=== PATIENT | male | born 1975 | race Caucasian/White ===

== ENCOUNTER 2023-08-15 22:15 | Emergency (ER) | payer OTHER ==
[2023-08-15 22:24] VITALS: BP 130/71; PULSE 100; RESP 20; TEMP 99.8; BMI 25.3
[2023-08-16] MEDS ORDERED: ACETAMINOPHEN 1000 MG/100 ML BAG IVPB ONE (01:09)
[2023-08-16] MEDS ORDERED: LACTATED RINGERS SOLUTION 1000 ML INFUS.BAG IV ONE (01:15)
[2023-08-16] MEDS ORDERED: ACETAMINOPHEN INJECTION 100 ML IVPB ONE (01:34)
== END 2023-08-16 02:13 | disposition home or self-care (01) ==
LOC: JERFT 22:15 → JER 22:15
DX: R50.9 Fever, unspecified (principal); R05.9 Cough, unspecified; M79.10 Myalgia, unspecified site; R51.9 Headache, unspecified; R09.81 Nasal congestion; R63.0 Anorexia; R00.0 Tachycardia, unspecified; J10.1 Influenza due to other identified influenza virus with other respiratory manifestations; Z20.822 Contact with and (suspected) exposure to COVID-19
CPT/HCPCS: 0241U-QW; 99283-25

== ENCOUNTER 2023-10-09 23:58 | Emergency (ER) | payer OTHER ==
[2023-10-10 00:07] VITALS: BP 148/88; PULSE 74; RESP 20; TEMP 98.7; BMI 25.4
[2023-10-10] MEDS ORDERED: ACETAMINOPHEN 325 MG TABLET (FP) ONE (01:05)
[2023-10-10] MEDS ORDERED: IBUPROFEN 600 MG TABLET (FP) PO ONE (01:05)
[2023-10-10] MEDS ORDERED: LIDOCAINE 5% TOPICAL PATCH ONE (01:05)
[2023-10-10] MEDS: LIDOCAINE 5% TOPICAL PATCH TP ONE (01:09)
[2023-10-10] MEDS: ACETAMINOPHEN 500 MG TABLET (FP) PO ONE (01:10)
[2023-10-10] MEDS: IBUPROFEN 600 MG TABLET (FP) PO ONE (01:10)
[2023-10-10] MEDS ORDERED: LIDOCAINE PATCH REMOVAL MC SCH (22:00)
== END 2023-10-10 03:23 | disposition home or self-care (01) ==
LOC: JER 23:58
DX: M54.6 Pain in thoracic spine (principal); M62.838 Other muscle spasm; M54.2 Cervicalgia
CPT/HCPCS: 72125-TC; 99284-25

== ENCOUNTER 2024-01-08 18:12 | Inpatient (IN) | payer OTHER ==
[2024-01-08] MEDS ORDERED: KETOROLAC TROMETHAMINE 15 MG/ML VIAL ONE (18:37)
[2024-01-08] MEDS ORDERED: HYDROmorphone HCL CARPU-JECT 2 MG/1 ML DISP.SYRIN ONE ×2 (18:51→23:16)
[2024-01-08 19:02] LABS: HEMATOCRIT 44.4 % (35.4-49); MCH 28.2 pg (25.7-33.7); MCHC 33.9 g/dl (32.0-35.9); MEAN CELL VOLUME 83.2 fl (80-96); PLATELET COUNT 190 10^3/uL (134-434); RBC 5.33 M/mm3 (4.00-5.60); RDW 14.1 % (11.9-15.9)
[2024-01-08] MEDS: HYDROmorphone HCl 2 MG/ML VIAL IVPUSH ONE ×2 (19:07→23:31)
[2024-01-08] MEDS: KETOROLAC TROMETHAMINE 15 MG/ML VIAL IM ONE (19:07)
[2024-01-08] MEDS: SODIUM CHLORIDE 0.9% 500 ML INFUS.BAG IV ONE ×2 (19:07→22:44)
[2024-01-08] MEDS: ACETAMINOPHEN 1000 MG/100 ML BAG IVPB ONE ×2 (19:08→22:19)
[2024-01-08 19:35] LABS: POTASSIUM 4.5 mmol/L (3.5-5.1)
[2024-01-08 19:37] LABS: CALCIUM 9.6 mg/dL (8.5-10.1)
[2024-01-08 19:38] LABS: ALBUMIN 4.2 g/dl (3.4-5.0)
[2024-01-08 19:41] LABS: CREATININE 1.5 mg/dL (0.55-1.3)
[2024-01-08 19:43] LABS: BILIRUBIN,TOTAL 0.3 mg/dL (0.2-1); TOT PROT 7.4 g/dl (6.4-8.2)
[2024-01-08 22:02] LABS: EPI CELLS 26 /uL (0-25.1); HYALINE CASTS 5 /uL (0-3.1); URINE APPEARANCE CLEAR; URINE BACTERIA 3 /uL (0-1359); URINE BILIRUBIN NEGATIVE (NEGATIVE); URINE COLOR YELLOW; URINE GLUCOSE (UA) TRACE (NEGATIVE); URINE KETONE TRACE (NEGATIVE); URINE LEUK ESTERASE NEGATIVE (NEGATIVE); URINE NITRITE NEGATIVE (NEGATIVE); URINE PROTEIN 1+ (NEGATIVE); URINE RBC 2955 /uL (0-23.9); URINE UROBILINOGEN 0.2 mg/dL (0.2-1.0); URINE WBC 5 /uL (0-25.8)
[2024-01-08] MEDS ORDERED: ACETAMINOPHEN INJECTION 100 ML IVPB ONE (22:14)
[2024-01-08] MEDS ORDERED: CEFTRIAXONE 1 GM/50 ML BAG ONE (22:20)
[2024-01-09] MEDS: TAMSULOSIN HCL 0.4 MG CAP PO ONE (00:11)
[2024-01-09] MEDS: SODIUM CHLORIDE 1,000 ML IV SCH (01:16)
[2024-01-09] MEDS ORDERED: ACETAMINOPHEN INJECTION 100 ML IVPB ONE ×2 (06:24→16:49)
[2024-01-09] MEDS: ACETAMINOPHEN 1000 MG/100 ML BAG IVPB PRN (06:29)
[2024-01-09 08:20] LABS: BASO % 0.2 % (0-2.0); EOS % 0.2 % (0-4.5); LYMPH % 16.1 % (8-40); MCH 28.2 pg (25.7-33.7); MCHC 34.2 g/dl (32.0-35.9); MEAN CELL VOLUME 82.5 fl (80-96); MEAN PLT VOLUME 9.1 fl (7.5-11.1); MONO % 7.9 % (3.8-10.2); NEUT % 75.6 % (42.8-82.8); PLATELET COUNT 155 10^3/uL (134-434); RBC 4.61 M/mm3 (4.00-5.60); RDW 13.8 % (11.9-15.9)
[2024-01-09 08:43] LABS: POTASSIUM 3.8 mmol/L (3.5-5.1)
[2024-01-09 08:47] LABS: ALBUMIN 3.6 g/dl (3.4-5.0); MAGNESIUM 1.9 mg/dL (1.8-2.4)
[2024-01-09 08:50] LABS: CREATININE 1.1 mg/dL (0.55-1.3); PHOSPHOROUS 2.6 mg/dL (2.5-4.9)
[2024-01-09 08:51] LABS: BILIRUBIN,TOTAL 0.8 mg/dL (0.2-1); TOT PROT 6.3 g/dl (6.4-8.2)
[2024-01-09] MEDS ORDERED: KETOROLAC TROMETHAMINE 15 MG/ML VIAL ONE (09:07)
[2024-01-09] MEDS: KETOROLAC TROMETHAMINE 15 MG/ML VIAL IVPUSH PRN (09:11)
[2024-01-09] MEDS ORDERED: KETOROLAC TROMETHAMINE 30 MG/1 ML VIAL ONE (16:45)
[2024-01-09] MEDS ORDERED: HYDROmorphone HCL CARPU-JECT 2 MG/1 ML DISP.SYRIN ONE (17:53)
[2024-01-09] MEDS: HYDROmorphone HCL CARPU-JECT 2 MG/1 ML DISP.SYRIN IVPB ONE (18:02)
[2024-01-10 01:49] VITALS: BMI 26.2
[2024-01-10] MEDS: ACETAMINOPHEN 325 MG TABLET (FP) PO ONE (07:05)
[2024-01-10 10:37] LABS: BASO % 0.4 % (0-2.0); EOS % 0.7 % (0-4.5); HEMATOCRIT 42.6 % (35.4-49); HEMOGLOBIN 14.5 GM/dL (11.7-16.9); LYMPH % 14.8 % (8-40); MCH 27.7 pg (25.7-33.7); MEAN CELL VOLUME 81.4 fl (80-96); MEAN PLT VOLUME 8.9 fl (7.5-11.1); MONO % 6.4 % (3.8-10.2); NEUT % 77.7 % (42.8-82.8); PLATELET COUNT 172 10^3/uL (134-434); RBC 5.23 M/mm3 (4.00-5.60); RDW 14.1 % (11.9-15.9); WHITE BLOOD COUNT 11.2 K/mm3 (4.0-10.0)
[2024-01-10 11:21] LABS: BLOOD UREA NITROGEN 13.5 mg/dL (7-18); CALCIUM 9.3 mg/dL (8.5-10.1); CREATININE 1.5 mg/dL (0.55-1.3); POTASSIUM 3.8 mmol/L (3.5-5.1)
[2024-01-10] MEDS: KETOROLAC TROMETHAMINE 15 MG/ML VIAL IVPUSH SCH (11:31)
[2024-01-10] MEDS: TAMSULOSIN HCL 0.4 MG CAP PO SCH (14:44)
[2024-01-10] MEDS: SODIUM CHLORIDE 1,000 ML IV SCH (14:44)
[2024-01-10] MEDS: ACETAMINOPHEN 1000 MG/100 ML BAG IVPB SCH (14:45)
[2024-01-10] MEDS: oxyCODONE HCL 5 MG TABLET PO PRN (22:58)
[2024-01-11] MEDS: KETOROLAC TROMETHAMINE 15 MG/ML VIAL IVPUSH ONE (00:25)
[2024-01-11 09:22] LABS: BASO % 0.3 % (0-2.0); EOS % 2.1 % (0-4.5); HEMATOCRIT 38.4 % (35.4-49); HEMOGLOBIN 13.2 GM/dL (11.7-16.9); LYMPH % 20.2 % (8-40); MCH 28.1 pg (25.7-33.7); MCHC 34.3 g/dl (32.0-35.9); MEAN CELL VOLUME 81.8 fl (80-96); MEAN PLT VOLUME 9.3 fl (7.5-11.1); MONO % 8.2 % (3.8-10.2); NEUT % 69.2 % (42.8-82.8); PLATELET COUNT 138 10^3/uL (134-434); RBC 4.69 M/mm3 (4.00-5.60); RDW 13.7 % (11.9-15.9); WHITE BLOOD COUNT 7.9 K/mm3 (4.0-10.0)
[2024-01-11 09:42] LABS: POTASSIUM 3.8 mmol/L (3.5-5.1)
[2024-01-11 09:53] LABS: CALCIUM 8.8 mg/dL (8.5-10.1)
[2024-01-11 09:54] LABS: BLOOD UREA NITROGEN 14.4 mg/dL (7-18)
[2024-01-11 09:57] LABS: CREATININE 1.4 mg/dL (0.55-1.3)
[2024-01-11] MEDS ORDERED: MIDAZOLAM HCL 2 MG/2 ML SINGLE DOSE VIAL ONE (12:23)
[2024-01-11] MEDS ORDERED: LIDOCAINE HCL/PF 2% SDV 5ML VIAL ONE (12:23)
[2024-01-11] MEDS ORDERED: PROPOFOL 20 ML ONE (12:23)
[2024-01-11] MEDS ORDERED: ceFAZolin SODIUM 1 GM VIAL ONE (13:44)
[2024-01-11] MEDS ORDERED: DEXAMETHASONE SOD PHOSPHATE 4 MG/1 ML VIAL ONE (13:44)
[2024-01-11] MEDS: ceFAZolin SODIUM 1 GM VIAL IVPB ONE (13:50)
[2024-01-11] MEDS ORDERED: LIDOCAINE HCL 2% JELLY 11 ML TP ONE (14:03)
[2024-01-11] MEDS ORDERED: PROMETHAZINE HCL 25 MG/1 ML VIAL IVPB PRN (14:44)
[2024-01-11] MEDS ORDERED: ONDANSETRON 4 MG/2 ML VIAL IVPUSH PRN (14:44)
[2024-01-11] MEDS ORDERED: ACETAMINOPHEN INJECTION 100 ML IVPB ONE (15:06)
[2024-01-11] MEDS: ACETAMINOPHEN 1000 MG/100 ML BAG IVPB ONE (15:11)
[2024-01-11] MEDS: LACTATED RINGERS SOLUTION 1,000 ML IV SCH (15:42)
[2024-01-11 21:05] VITALS: BP 135/84; PULSE 90; RESP 18; TEMP 98.6
[2024-01-12] MEDS ORDERED: TAMSULOSIN HCL 0.4 MG CAP PO SCH (08:30)
== END 2024-01-11 22:30 | disposition home or self-care (01) | DRG 446 ==
LOC: JER 18:12 → UNDOADMOB 22:19 → INTOOBSV 22:19 → JERBED 22:19 → OBSVTOIN 22:19 → JERBED 01-09 01:29 → OBSVTOIN 01-09 01:29 → J6S 01-09 20:07
PROVIDERS: ADMIT Internal Medicine; ATTEND Internal Medicine
PROC: 0T768DZ Dilation of Right Ureter with Intraluminal Device, Via Natural or Artificial Opening Endoscopic (ICD-10-PCS; 2024-01-08)
PROC: BT1DZZZ Fluoroscopy of Right Kidney, Ureter and Bladder (ICD-10-PCS; 2024-01-08)
PROC: 0TC68ZZ Extirpation of Matter from Right Ureter, Via Natural or Artificial Opening Endoscopic (ICD-10-PCS; principal; 2024-01-11 14:00)
DX: N13.2 Hydronephrosis with renal and ureteral calculous obstruction (principal); N17.9 Acute kidney failure, unspecified; E78.5 Hyperlipidemia, unspecified; E78.00 Pure hypercholesterolemia, unspecified; N50.819 Testicular pain, unspecified; N50.9 Disorder of male genital organs, unspecified
CPT/HCPCS: 36415; 74176-TC; 76000-TC-FY; 76870-TC; 80048; 80053; 81003; 82360; 83735; 84100; 85025; 85027; 87086; 88300-TC; 93005; 93010; 94760; 99285-25; C2617; J0131